=== PATIENT | male | born 1980 | race Caucasian/White ===

== ENCOUNTER 2021-03-21 12:24 | Inpatient (IN) | payer MEDICAID ==
[~2021-03-21] VITALS: Ht 177.8 cm; Wt 77.1 kg
[2021-03-21 12:55] VITALS: BP 124/64
[2021-03-21] MEDS ORDERED: ACETAMINOPHEN ES 500 MG TABLET PO ONE (13:30)
[2021-03-21] MEDS ORDERED: IV NS 1000 ML 1,000 ML IV ONE (13:30)
[2021-03-21 13:42] LABS: BASOPHILS # (AUTO) 0.1 K/uL (0.0-8.0); BASOPHILS % (AUTO) 0.6 % (0.0-2.0); EOSINOPHILS % (AUTO) 0.1 % (0.0-7.0); HEMATOCRIT 39.6 % (36.7-47.1); HEMOGLOBIN 13.4 g/dL (12.5-16.3); LYMPHOCYTES # (AUTO) 1.5 K/uL (20.0-40.0); LYMPHOCYTES % (AUTO) 9.1 % (20.5-51.5); MEAN CORPUSCULAR HEMOGLOBIN 29.2 uug (23.8-33.4); MEAN CORPUSCULAR HGB CONC 34 g/dL (32.5-36.3); MEAN CORPUSCULAR VOLUME 86.2 fL (73.0-96.2); MONOCYTES # (AUTO) 2.9 K/uL (2.0-10.0); MONOCYTES % (AUTO) 17.9 % (0.0-11.0); NEUTROPHILS # (AUTO) 11.8 K/uL (1.8-8.9); NEUTROPHILS % (AUTO) 72.3 % (38.5-71.5); PLATELET COUNT (AUTO) 473 K/uL (152-348); WHITE BLOOD COUNT (AUTO) 16.3 K/uL (3.6-10.2)
[2021-03-21 13:45] LABS: CREATININE 1.2 mg/dL (0.6-1.3); POTASSIUM 4.1 mmol/L (3.5-5.1)
[2021-03-21 13:58] LABS: BILIRUBIN,TOTAL 0.8 mg/dL (0.2-1.0); TOTAL PROTEIN, SERUM 8.1 g/dL (6.4-8.2)
[2021-03-21 14:00] LABS: ABG BASE EXCESS 3.2 mmol/L; ABG HCO3 27.2 mmol/L; ABG PCO2 39.2 mmHg (35.0-45.0); ABG PH 7.459 (7.350-7.450); ABG PO2 67.4 mmHg (75.0-100.0); ABG SITE RIGHT RADIAL; ABG TOTAL HEMOGLOBIN 13.2 G/dL (13.5-18.0); COHb 0.9 % (0.5-1.5); MetHb 0.4 % (0.0-1.5); O2Hb 92.5 % (94.0-97.0); VENT MODE room air
[2021-03-21 14:12] LABS: *BILIRUBIN,URIN NEGATIVE (NEGATIVE); *BLOOD, URINE NEGATIVE (NEGATIVE); *CLARITY,URINE CLEAR (CLEAR); *COLOR,URINE YELLOW (YELLOW); *KETONES,URINE NEGATIVE (NEGATIVE); *UROBILINOGEN,URINE 0.2 E.U./dl (NORMAL); LEUKOCYTE ESTERASE ,URINE NEGATIVE (NEGATIVE); NITRITE, URINE NEGATIVE (NEGATIVE); UGLUCOSE NEGATIVE (NEGATIVE)
[2021-03-21] MEDS ORDERED: AZITHROMYCIN 250 MG TABLET PO ONE (14:30)
[2021-03-21] MEDS ORDERED: CEFTRIAXONE 1 G in IV DEXTROSE 5% 50 ML IV ONE (14:30)
[2021-03-21] MEDS ORDERED: AZITHROMYCIN 250 MG TABLET ONE (14:37)
[2021-03-21] MEDS ORDERED: CEFTRIAXONE /D5W 50ML IVPB **ER PYXIS IV ONE (14:37)
[2021-03-21] MEDS ORDERED: HYDROCODONE/APAP 10-325 MG TABLET PO PRN (15:00)
[2021-03-21] MEDS ORDERED: TEMAZEPAM 15 MG CAPSULE PO PRN (15:00)
[2021-03-21] MEDS ORDERED: ONDANSETRON 4 MG/2 ML VIAL IV PRN (15:00)
[2021-03-21] MEDS ORDERED: MAGNESIUM HYDROXIDE 30 ML LIQUID UDC PO PRN (15:00)
[2021-03-21] MEDS ORDERED: Z GUARD REMEDY PASTE 57 GM TUBE TOP PRN (15:00)
[2021-03-21 15:53] LABS: NEUTROPHILS % (MANUAL) 73 % (42-75)
[2021-03-21 15:54] LABS: LYMPHOCYTES % (MANUAL) 9 % (20-40); MONOCYTES % (MANUAL) 18 % (2-10)
[2021-03-21 16:00] VITALS: BP 114/78
[2021-03-21] MEDS: HYDROCODONE/APAP 5-325MG TABLET PO PRN (17:05)
[2021-03-21] MEDS: IV NS 1000 ML 1,000 ML IV PRN (18:01)
[2021-03-21 20:40] VITALS: BP 121/74
[2021-03-21] MEDS ORDERED: ENOXAPARIN SODIUM 40 MG/0.4 ML DISP.SYRIN SQ SCH (21:00)
[2021-03-21] MEDS: ACETAMINOPHEN 325 MG TABLET PO PRN (22:41)
[2021-03-22] MEDS: IV NS 1000 ML 1,000 ML IV PRN ×2 (03:15→16:16)
[2021-03-22] MEDS: BENZONATATE 100 MG CAPSULE PO PRN ×3 (04:02→22:00)
[2021-03-22] MEDS: HYDROCODONE/APAP 5-325MG TABLET PO PRN (04:02)
[2021-03-22 04:40] VITALS: BP 106/63
[2021-03-22] MEDS: ACETAMINOPHEN 325 MG TABLET PO PRN ×3 (05:33→21:53)
[2021-03-22 06:06] LABS: BASOPHILS % (AUTO) 0.2 % (0.0-2.0); HEMATOCRIT 34.4 % (36.7-47.1); HEMOGLOBIN 11.5 g/dL (12.5-16.3); LYMPHOCYTES # (AUTO) 1.3 K/uL (20.0-40.0); LYMPHOCYTES % (AUTO) 7.2 % (20.5-51.5); MEAN CORPUSCULAR HEMOGLOBIN 29.1 uug (23.8-33.4); MEAN CORPUSCULAR HGB CONC 33 g/dL (32.5-36.3); MEAN CORPUSCULAR VOLUME 87.2 fL (73.0-96.2); MONOCYTES # (AUTO) 2.6 K/uL (2.0-10.0); NEUTROPHILS # (AUTO) 13.6 K/uL (1.8-8.9); NEUTROPHILS % (AUTO) 77.6 % (38.5-71.5); PLATELET COUNT (AUTO) 354 K/uL (152-348); RED BLOOD CELL COUNT(AUTO) 3.95 MIL/uL (4.06-5.63); WHITE BLOOD COUNT (AUTO) 17.5 K/uL (3.6-10.2)
[2021-03-22 06:16] LABS: CREATININE 1.2 mg/dL (0.6-1.3); POTASSIUM 4.2 mmol/L (3.5-5.1)
[2021-03-22 06:17] LABS: PHOSPHOROUS 4.1 mg/dL (2.5-4.9)
[2021-03-22] MEDS ORDERED: IV NORMAL SALINE 250 ML IV ONE (08:19)
[2021-03-22] MEDS ORDERED: IOHEXOL 350 100 ML INFUS..BTL ONE (08:19)
[2021-03-22] MEDS ORDERED: SWABABLE VALVE TRANSFER SET EA MC ONE (08:19)
[2021-03-22] MEDS ORDERED: DEXAMETHASONE 4 MG TABLET PO ONE (09:00)
[2021-03-22] MEDS: DEXAMETHASONE 4 MG TABLET PO SCH (09:26)
[2021-03-22] MEDS: DOXYCYCLINE HYCLATE 100 MG TABLET PO SCH ×2 (09:26→21:17)
[2021-03-22] MEDS: APIXABAN 5 MG TABLET PO SCH ×2 (09:56→21:18)
[2021-03-22] MEDS: CEFEPIME HCL 2 G in IV DEXTROSE 5% 100 ML IV SCH ×2 (10:44→18:51)
[2021-03-22 12:00] VITALS: BP 120/76
[2021-03-22 15:33] LABS: BAND % (MANUAL) 0 % (0-10); LYMPHOCYTES % (MANUAL) 11 % (20-40); MONOCYTES % (MANUAL) 10 % (2-10); NEUTROPHILS % (MANUAL) 79 % (42-75)
[2021-03-22 16:00] VITALS: BP 122/79
[2021-03-22] MEDS ORDERED: CEFTRIAXONE 1 G in IV DEXTROSE 5% 50 ML IV SCH (16:00)
[2021-03-22 20:20] VITALS: BP 105/59
[2021-03-23 00:15] VITALS: BP 113/71
[2021-03-23] MEDS: CEFEPIME HCL 2 G in IV DEXTROSE 5% 100 ML IV SCH ×3 (02:18→17:05)
[2021-03-23] MEDS: IV NS 1000 ML 1,000 ML IV PRN ×2 (02:19→11:34)
[2021-03-23] MEDS: HYDROCODONE/APAP 5-325MG TABLET PO PRN (03:50)
[2021-03-23 04:25] VITALS: BP 114/80
[2021-03-23 06:43] LABS: BASOPHILS % (AUTO) 0.2 % (0.0-2.0); HEMATOCRIT 34.7 % (36.7-47.1); HEMOGLOBIN 11.8 g/dL (12.5-16.3); LYMPHOCYTES # (AUTO) 1.5 K/uL (20.0-40.0); LYMPHOCYTES % (AUTO) 8.4 % (20.5-51.5); MEAN CORPUSCULAR HEMOGLOBIN 29.6 uug (23.8-33.4); MEAN CORPUSCULAR HGB CONC 34 g/dL (32.5-36.3); MEAN CORPUSCULAR VOLUME 87.2 fL (73.0-96.2); MONOCYTES % (AUTO) 11.5 % (0.0-11.0); NEUTROPHILS # (AUTO) 14.1 K/uL (1.8-8.9); NEUTROPHILS % (AUTO) 79.9 % (38.5-71.5); PLATELET COUNT (AUTO) 378 K/uL (152-348); RED BLOOD CELL COUNT(AUTO) 3.97 MIL/uL (4.06-5.63); WHITE BLOOD COUNT (AUTO) 17.7 K/uL (3.6-10.2)
[2021-03-23 06:51] LABS: CREATININE 1.1 mg/dL (0.6-1.3); MAGNESIUM 2.2 mg/dL (1.8-2.4); PHOSPHOROUS 4.6 mg/dL (2.5-4.9); POTASSIUM 4.4 mmol/L (3.5-5.1)
[2021-03-23 08:15] VITALS: BP 113/70
[2021-03-23] MEDS: DEXAMETHASONE 4 MG TABLET PO SCH (08:17)
[2021-03-23] MEDS: APIXABAN 5 MG TABLET PO SCH ×2 (08:17→20:06)
[2021-03-23] MEDS: DOXYCYCLINE HYCLATE 100 MG TABLET PO SCH ×2 (08:18→20:06)
[2021-03-23 12:32] VITALS: BP 106/67
[2021-03-23 15:08] VITALS: BP 121/72
[2021-03-23 20:45] VITALS: BP 120/76
[2021-03-24 00:25] VITALS: BP 116/79
[2021-03-24] MEDS: BENZONATATE 100 MG CAPSULE PO PRN ×3 (00:32→16:53)
[2021-03-24] MEDS: CEFEPIME HCL 2 G in IV DEXTROSE 5% 100 ML IV SCH (01:33)
[2021-03-24 04:45] VITALS: BP 102/53
[2021-03-24] MEDS ORDERED: CEFTRIAXONE 1 G VIAL IM SCH (08:15)
[2021-03-24] MEDS: DEXAMETHASONE 4 MG TABLET PO SCH (08:53)
[2021-03-24] MEDS: DOXYCYCLINE HYCLATE 100 MG TABLET PO SCH ×2 (08:53→20:31)
[2021-03-24] MEDS: APIXABAN 5 MG TABLET PO SCH ×2 (08:54→20:32)
[2021-03-24 09:38] VITALS: BP 110/97
[2021-03-24] MEDS: CEFTRIAXONE 1 G in IV DEXTROSE 5% 50 ML IV SCH (09:43)
[2021-03-24 11:55] VITALS: BP 113/74
[2021-03-24 16:00] VITALS: BP 106/72
[2021-03-24 20:18] VITALS: BP 113/74
[2021-03-25 00:12] VITALS: BP 118/73
[2021-03-25 04:18] VITALS: BP 107/75
[2021-03-25] MEDS: DEXAMETHASONE 4 MG TABLET PO SCH (08:01)
[2021-03-25] MEDS: DOXYCYCLINE HYCLATE 100 MG TABLET PO SCH (08:01)
[2021-03-25] MEDS: APIXABAN 5 MG TABLET PO SCH (08:23)
[2021-03-25] MEDS: CEFTRIAXONE 1 G in IV DEXTROSE 5% 50 ML IV SCH (09:17)
[2021-03-25] MEDS ORDERED: DEXA4TAB2 PO (11:52)
[2021-03-25] MEDS ORDERED: APIX5TAB PO (11:52)
[2021-03-25] MEDS ORDERED: BENZ-38 PO (11:52)
[2021-03-25] MEDS ORDERED: DOXY100T2 PO (11:52)
[2021-03-25] MEDS ORDERED: ACET325T53 PO (11:52)
[2021-03-25 12:00] VITALS: BP 112/72
[2021-03-29] MEDS ORDERED: APIXABAN 5 MG TABLET PO SCH (09:00)
== END 2021-03-25 13:25 | disposition home or self-care (01) | DRG 137 ==
LOC: ER 12:24 → TELE3 15:19 → MEDSURG3 16:04 → TELE3 03-22 10:14
PROVIDERS: ADMIT Nurse Practitioner Acute Care; ATTEND Nurse Practitioner Acute Care
DX: U07.1 COVID-19 (principal); I26.99 Other pulmonary embolism without acute cor pulmonale; J96.01 Acute respiratory failure with hypoxia; J12.82 Pneumonia due to coronavirus disease 2019; J15.9 Unspecified bacterial pneumonia; E86.0 Dehydration; E86.1 Hypovolemia; Z20.822 Contact with and (suspected) exposure to COVID-19; E87.1 Hypo-osmolality and hyponatremia; B97.29 Other coronavirus as the cause of diseases classified elsewhere; D72.829 Elevated white blood cell count, unspecified; K52.9 Noninfective gastroenteritis and colitis, unspecified; D64.9 Anemia, unspecified; R07.89 Other chest pain; E88.09 Other disorders of plasma-protein metabolism, not elsewhere classified
CPT/HCPCS: 36415; 36600; 70030-TC; 71045; 71275; 83605; 83615; 83735; 84100; 85025; 85730; 86140; 86803; 87040; 87070; 87400; 87806; 89055; 93005; 93307; A4663; A9150; G0378; J0692; J0696; J1650; J7030; J7050; J7060; J8540; Q0144; Q9967; U0003